=== PATIENT | female | born 1970 | race Caucasian/White ===

== ENCOUNTER 2024-11-28 21:25 | Emergency (ER) | payer OTHER ==
[~2024-11-28] VITALS: Ht 167.6 cm; Wt 88.0 kg
[~2024-11-28 21:25] MED LIST: GLUCOVANCE 5-51 EACH PO; KETOROLAC TROME10 MG PO
[2024-11-28 22:45] LABS: CORONAVIRUS COVID-19 AG NEGATIVE (NEGATIVE); INFLUENZA A AG NEGATIVE (NEGATIVE); INFLUENZA B AG NEGATIVE (NEGATIVE); STREPTOCOCCUS GRP A ANTIGEN NEGATIVE (NEGATIVE)
[2024-11-28] MEDS ORDERED: VENTOLIN HFA18 GM INH (23:22)
[2024-11-28] MEDS ORDERED: AZITHROMYCIN250 MG PO (23:22)
[2024-11-28] MEDS ORDERED: PREDNISONE20 MG PO (23:22)
[2024-11-29 00:01] VITALS: PULSE 94; RESP 18; TEMP 98.4; O2SAT 96
== END 2024-11-29 00:04 | disposition home or self-care (01) ==
LOC: ER 21:32
DX: R05.9 Cough, unspecified (principal); J06.9 Acute upper respiratory infection, unspecified; Z11.52 Encounter for screening for COVID-19
CPT/HCPCS: 71046; 83518; 87070; 99283